=== PATIENT | female | born 1960 | race Caucasian/White ===

== ENCOUNTER 2017-07-04 09:38 | Emergency (ER) | payer MEDICARE ==
[~2017-07-04] VITALS: Ht 160 cm; Wt 72.0 kg
[~2017-07-04 09:38] MED LIST: CIPRO500 MG OR; LEVAQUIN750 MG PO; NAPROSYN500 MG OR; NICOTINE T21 MG/PATC TD; NO MEDS; NORVASC2.5 MG PO; Norvasc PO; OXY1; PREDNISONE10 MG PO; PREDNISONE50 MG PO; PROAIR HFA IN; SPIRIVA IN; SYMBICORT1 AE1 IN; ULTRAM50 M1 PO; VENTOLIN HFA IN; WELLBUTRIN SR150 M1 PO; ZPAK PO
[2017-07-04 10:05] LABS: HEMATOCRIT 46.5 % (37.0-47.0); HEMOGLOBIN 14.7 g/dl (12.0-16.0); IMMATURE GRANULOCYTES 0.2 % (0.0-1.0); MEAN CELL VOLUME 86.4 fL CALC (80.0-100.0); MEAN CORPUSCULAR HGB 27.3 pG CALC (26.0-32.0); MEAN CORPUSCULAR HGB CONC 31.6 g/L CALC (32.0-36.0); NEUT# 5.01 thou/uL (2.00-7.15); RED BLOOD COUNT 5.38 mill/uL (4.20-5.60); RED CELL DISTRI WIDTH 14.7 % (11.5-15.5)
[2017-07-04] MEDS ORDERED: ASPIRIN81 MG PO (10:18)
[2017-07-04] MEDS ORDERED: PLAVIX75 MG PO (10:21)
[2017-07-04 10:30] LABS: PROTHROMBIN TIME 10.6 SECONDS (9.0-12.5)
[2017-07-04 10:31] LABS: ALBUMIN 4.7 g/dL (3.2-5.0); ALKALINE PHOSPHATASE 107 u/l (38-126); ANION GAP 14 (6-22 (CALC)); BILIRUBIN, TOTAL 0.7 mg/dL (0.0-1.4); BUN 11 mg/dL (7-17); BUN/CREATININE RATIO 17 (12-20 (CALC)); CALCIUM 9.8 mg/dL (8.4-10.2); CARBON DIOXIDE 28 mmol/l (22-30); CHLORIDE 107 mmol/l (95-108); CREATININE 0.7 mg/dL (0.5-1.0); GFR > 60 ML/MIN (>=60 (CALC)); GFR FOR AFR.AMER. > 60 ML/MIN (>=60 (CALC)); GLUCOSE 121 mg/dL (65-105); POTASSIUM 3.9 mmol/l (3.5-5.1); SGOT/AST 27 u/l (14-36); SGPT/ALT 31 u/l (9-52); SODIUM 145 mmol/l (137-146); TOTAL PROTEIN 8.1 g/dL (6.3-8.2)
[2017-07-04 10:44] LABS: MYOGLOBIN 50 ng/mL (0 - 62)
[2017-07-04 11:26] VITALS: BP 157/91
[2017-07-04 11:26] LABS: URINE BILIRUBIN - DIPSTICK NEGATIVE (NEGATIVE); URINE BLOOD DIPSTICK NEGATIVE (NEGATIVE); URINE CLARITY CLEAR; URINE COLOR YELLOW; URINE GLUCOSE - DIPSTICK NEGATIVE (NEGATIVE); URINE KETONE NEGATIVE (NEGATIVE); URINE LEUK ESTERASE NEGATIVE (NEGATIVE); URINE NITRITE - DIPSTICK NEGATIVE (Negative); URINE PH 5.5 (4.5-8.0); URINE PROTEIN - DIPSTICK NEGATIVE (NEG-TRACE); URINE SPECIFIC GRAVITY 1.025; URINE UROBILINOGEN - DIPSTICK 0.2 E.U./dL (0.2)
== END 2017-07-04 11:35 | disposition left against medical advice (07) ==
LOC: ED 09:38
PROVIDERS: Emergency Medicine
DX: G45.9 Transient cerebral ischemic attack, unspecified (principal); R47.81 Slurred speech; R47.1 Dysarthria and anarthria; Z91.19 Patient's noncompliance with other medical treatment and regimen; R00.0 Tachycardia, unspecified; Z72.0 Tobacco use; I10 Essential (primary) hypertension

== ENCOUNTER 2017-07-07 17:58 | Emergency (ER) | payer MEDICARE ==
[~2017-07-07] VITALS: Ht 160 cm; Wt 65.0 kg
[~2017-07-07 17:58] MED LIST changes: +ASPIRIN81 MG PO; +PLAVIX75 MG PO
[2017-07-07 18:51] LABS: HEMATOCRIT 45.3 % (37.0-47.0); HEMOGLOBIN 14.2 g/dl (12.0-16.0); IMMATURE GRANULOCYTES 0.2 % (0.0-1.0); MEAN CELL VOLUME 87.6 fL CALC (80.0-100.0); MEAN CORPUSCULAR HGB 27.5 pG CALC (26.0-32.0); MEAN CORPUSCULAR HGB CONC 31.3 g/L CALC (32.0-36.0); NEUT# 7.18 thou/uL (2.00-7.15); RED BLOOD COUNT 5.17 mill/uL (4.20-5.60); RED CELL DISTRI WIDTH 14.5 % (11.5-15.5)
[2017-07-07 19:01] LABS: PROTHROMBIN TIME 10.8 SECONDS (9.0-12.5)
[2017-07-07 19:26] LABS: ALBUMIN 4.7 g/dL (3.2-5.0); ALKALINE PHOSPHATASE 94 u/l (38-126); ANION GAP 16 (6-22 (CALC)); BILIRUBIN, TOTAL 0.7 mg/dL (0.0-1.4); BUN 11 mg/dL (7-17); BUN/CREATININE RATIO 19 (12-20 (CALC)); CALCIUM 10.2 mg/dL (8.4-10.2); CARBON DIOXIDE 28 mmol/l (22-30); CHLORIDE 107 mmol/l (95-108); CREATININE 0.6 mg/dL (0.5-1.0); GFR > 60 ML/MIN (>=60 (CALC)); GFR FOR AFR.AMER. > 60 ML/MIN (>=60 (CALC)); GLUCOSE 100 mg/dL (65-105); POTASSIUM 4.2 mmol/l (3.5-5.1); SGOT/AST 29 u/l (14-36); SGPT/ALT 41 u/l (9-52); SODIUM 147 mmol/l (137-146); TOTAL PROTEIN 7.7 g/dL (6.3-8.2)
[2017-07-07 19:31] VITALS: BP 196/88
== END 2017-07-07 19:30 | disposition short-term general hospital (02) ==
LOC: ED 17:58
PROVIDERS: Emergency Medicine
DX: I63.9 Cerebral infarction, unspecified (principal); R47.81 Slurred speech; G83.21 Monoplegia of upper limb affecting right dominant side; I10 Essential (primary) hypertension; F17.220 Nicotine dependence, chewing tobacco, uncomplicated; R42 Dizziness and giddiness

== ENCOUNTER 2021-10-22 21:17 | Emergency (ER) | payer MEDICARE | END 2021-10-23 00:39 | disposition left against medical advice (07) | LOC: ED 21:17 → LWOBS 10-23 00:37 | DX: Z53.21 Procedure and treatment not carried out due to patient leaving prior to being seen by health care provider (principal) ==

== ENCOUNTER 2023-01-28 13:22 | Inpatient (IN) | payer MEDICARE ==
[2023-01-28] VITALS (26 sets, daily range): BP systolic 103–156; BP diastolic 48–91
[~2023-01-28] VITALS: Ht 152.4 cm; Wt 55.0 kg
[2023-01-28 13:49] LABS: BASO% 1.5 % (0-3); EOS% 0.1 % (0-8); IMMATURE GRANULOCYTES 0.1 % (0.0-5.0); LYMPH% 17.4 % (15-41); MEAN CORPUSCULAR HGB 18.2 pG CALC (26.0-32.0); MEAN CORPUSCULAR HGB CONC 26.2 g/dL CAL (32.0-36.0); MONO% 14.1 % (2-13); NEUT# 5.46 thou/uL (2.00-7.15); NEUT% 66.8 % (42-76); RED BLOOD COUNT 4.44 mill/uL (4.20-5.60); RED CELL DISTRI WIDTH 19.3 % (11.5-15.5)
[2023-01-28 13:53] LABS: HEMATOCRIT 30.9 % (37.0-47.0); HEMOGLOBIN 8.1 g/dl (12.0-16.0); MEAN CELL VOLUME 69.6 fL CALC (80.0-100.0)
[2023-01-28 14:00] LABS: ALBUMIN 4.4 g/dL (3.2-5.0); ALKALINE PHOSPHATASE 68 u/l (38-126); ANION GAP 10 (6-22 (CALC)); BUN 12 mg/dL (8-23); BUN/CREATININE RATIO 22 (12-20 (CALC)); CARBON DIOXIDE 31 mmol/l (22-30); CHLORIDE 100 mmol/l (95-108); CREATININE 0.5 mg/dL (0.5-1.0); GFR FOR AFR.AMER. > 60 ML/MIN (>=60 (CALC)); GFR OTHER RACES > 60 ML/MIN (>=60 (CALC)); POTASSIUM 3.9 mmol/l (3.5-5.1); SGOT/AST 33 u/l (9-36); SODIUM 137 mmol/l (137-146); TOTAL PROTEIN 7.6 g/dL (6.3-8.2)
[2023-01-28 14:09] LABS: BILIRUBIN, TOTAL 0.3 mg/dL (0.02-1.3)
[2023-01-28] MEDS ORDERED: RISPERDAL0.5 MG PO (19:12)
[2023-01-28] MEDS ORDERED: ROSUVASTATIN CA10 MG PO (19:13)
[2023-01-28] MEDS ORDERED: LEVOTHYROXIN75 MC1 PO (19:13)
[2023-01-28] MEDS ORDERED: ZOLOFT25 MG PO (19:14)
[2023-01-29] VITALS (29 sets, daily range): BP systolic 97–144; BP diastolic 48–95
[2023-01-29 05:59] LABS: ALBUMIN 3.7 g/dL (3.2-5.0); ALKALINE PHOSPHATASE 55 u/l (38-126); ANION GAP 7 (6-22 (CALC)); BUN 10 mg/dL (8-23); BUN/CREATININE RATIO 21 (12-20 (CALC)); CARBON DIOXIDE 33 mmol/l (22-30); CHLORIDE 104 mmol/l (95-108); CREATININE 0.5 mg/dL (0.5-1.0); GFR FOR AFR.AMER. > 60 ML/MIN (>=60 (CALC)); GFR OTHER RACES > 60 ML/MIN (>=60 (CALC)); HEMATOCRIT 26.8 % (37.0-47.0); MAGNESIUM 2.1 mg/dL (1.6-2.3); MEAN CELL VOLUME 71.1 fL CALC (80.0-100.0); MEAN CORPUSCULAR HGB 18.6 pG CALC (26.0-32.0); MEAN CORPUSCULAR HGB CONC 26.1 g/dL CAL (32.0-36.0); POTASSIUM 4.5 mmol/l (3.5-5.1); RED BLOOD COUNT 3.77 mill/uL (4.20-5.60); RED CELL DISTRI WIDTH 19.5 % (11.5-15.5); SGOT/AST 24 u/l (9-36); SODIUM 140 mmol/l (137-146); TOTAL PROTEIN 6.2 g/dL (6.3-8.2)
[2023-01-29 06:00] LABS: BILIRUBIN, TOTAL 0.1 mg/dL (0.02-1.3)
[2023-01-30] VITALS (12 sets, daily range): BP systolic 105–141; BP diastolic 53–74
[2023-01-30 04:55] LABS: HEMATOCRIT 31.1 % (37.0-47.0); HEMOGLOBIN 8.6 g/dl (12.0-16.0); MEAN CELL VOLUME 75.1 fL CALC (80.0-100.0); MEAN CORPUSCULAR HGB 20.8 pG CALC (26.0-32.0); MEAN CORPUSCULAR HGB CONC 27.7 g/dL CAL (32.0-36.0); RED BLOOD COUNT 4.14 mill/uL (4.20-5.60); RED CELL DISTRI WIDTH 21.9 % (11.5-15.5)
[2023-01-30 05:21] LABS: ALBUMIN 3.4 g/dL (3.2-5.0); ALKALINE PHOSPHATASE 51 u/l (38-126); ANION GAP 7 (6-22 (CALC)); BUN 10 mg/dL (8-23); BUN/CREATININE RATIO 22 (12-20 (CALC)); CARBON DIOXIDE 34 mmol/l (22-30); CHLORIDE 103 mmol/l (95-108); CREATININE 0.4 mg/dL (0.5-1.0); GFR FOR AFR.AMER. > 60 ML/MIN (>=60 (CALC)); GFR OTHER RACES > 60 ML/MIN (>=60 (CALC)); MAGNESIUM 2.2 mg/dL (1.6-2.3); POTASSIUM 4.1 mmol/l (3.5-5.1); SGOT/AST 33 u/l (9-36); SODIUM 140 mmol/l (137-146); TOTAL PROTEIN 5.8 g/dL (6.3-8.2)
[2023-01-30] MEDS ORDERED: PANTOPRAZOLE SO40 M1 PO (10:59)
[2023-01-30] MEDS ORDERED: PREDNISONE10 MG PO (11:00)
[2023-01-30] MEDS ORDERED: VIBRAMYCIN100 M2 PO (11:00)
[2023-01-30] MEDS ORDERED: FERROUS SULF325 M2 PO (11:09)
== END 2023-01-30 13:30 | disposition home or self-care (01) | DRG 190 ==
LOC: ED 13:22 → ED-I 14:30 → ED 14:51 → ICU 14:52
PROVIDERS: Family Medicine; ADMIT Internal Medicine; ATTEND Internal Medicine
PROC: 5A09357 Assistance with Respiratory Ventilation, Less than 24 Consecutive Hours, Continuous Positive Airway Pressure (ICD-10-PCS; principal; 2023-01-28)
PROC: 30233N1 Transfusion of Nonautologous Red Blood Cells into Peripheral Vein, Percutaneous Approach (ICD-10-PCS; 2023-01-29)
DX: J44.1 Chronic obstructive pulmonary disease with (acute) exacerbation (principal); J96.01 Acute respiratory failure with hypoxia; J96.02 Acute respiratory failure with hypercapnia; D50.9 Iron deficiency anemia, unspecified; I10 Essential (primary) hypertension; I25.10 Atherosclerotic heart disease of native coronary artery without angina pectoris; F32.A Depression, unspecified; E03.9 Hypothyroidism, unspecified; F41.9 Anxiety disorder, unspecified; F17.200 Nicotine dependence, unspecified, uncomplicated; Z79.82 Long term (current) use of aspirin; Z86.73 Personal history of transient ischemic attack (TIA), and cerebral infarction without residual deficits; Z95.5 Presence of coronary angioplasty implant and graft; Z79.02 Long term (current) use of antithrombotics/antiplatelets; Z20.822 Contact with and (suspected) exposure to COVID-19
CPT/HCPCS: J1756; P9016